=== PATIENT | female | born 1995 | race Caucasian/White ===

== ENCOUNTER 2017-06-03 03:37 | Emergency (ER) | payer OTHER ==
[~2017-06-03] VITALS: Ht 157.5 cm; Wt 62.7 kg
[~2017-06-03 03:37] MED LIST: AUGMENTIN875 MG PO; NOHOMEMEDS
[2017-06-03 04:48] LABS: HEMATOCRIT 42.6 % (36.0-46.0); MCH 29.5 PG (29.0-34.0); MCHC 34.7 G/DL (30.0-36.0); MEAN PLAT.VOLUME 9.5 uM^3 (9.5-12.4); PLATELET COUNT 393 K/uL (156-360); RBC DIS.WIDTH-CV 11.3 % (11.8-14.6); RBC DIS.WIDTH-SD 34.5 % (39-53); RED BLOOD COUNT 5.01 M/uL (3.80-5.20); WHITE BLOOD COUNT 10.6 K/uL (4.1-10.2)
[2017-06-03 04:50] LABS: CHLORIDE 105 mEq/L (99-109); POTASSIUM 3.3 mEq/L (3.7-5.4); SODIUM 141 mEq/L (136-147)
[2017-06-03 04:53] LABS: GLUCOSE 107 mg/dL (70-99)
[2017-06-03 04:54] LABS: ANION GAP 16 MEQ/L (2-14); TOTAL BILIRUBIN 0.4 mg/dL (0.0-1.0)
[2017-06-03 04:56] LABS: ALKALINE PHOSPHATASE 87 IU/L (3-129); GFR ESTIMATE (CALCULATED) > 59 mL/min/
[2017-06-03 04:57] LABS: UREA NITROGEN (BUN) 10 mg/dL (9-23)
[2017-06-03 04:58] LABS: DIRECT BILIRUBIN 0.2 mg/dL (0.0-0.3)
[2017-06-03 05:09] LABS: D-DIMER ELISA < 150.00 ng/mLDDU (<230)
[2017-06-03 05:11] LABS: QUANTITATIVE HCG < 4.0 MIU/ML
[2017-06-03 05:43] LABS: TROP-I INTERPRETATION NEGATIVE; TROPONIN-I < 0.01 ng/mL (0.0-0.30)
[2017-06-03 06:03] VITALS: BP 132/78
== END 2017-06-03 06:04 | disposition home or self-care (01) ==
LOC: EME 03:37
PROVIDERS: Emergency Medicine
DX: R06.02 Shortness of breath (principal); F41.9 Anxiety disorder, unspecified; K21.9 Gastro-esophageal reflux disease without esophagitis; E87.6 Hypokalemia
CPT/HCPCS: 71020; 80048; 80076; 84484; 84702; 85027; 85379; 93005; 99281; 99284; J2060; J2405; J7030

== ENCOUNTER 2017-07-29 22:10 | Outpatient (CLI) | payer OTHER ==
[2017-07-29 22:48] VITALS: BP 117/75
[2017-07-29 22:50] VITALS: BP 117/75
[2017-07-29 23:28] LABS: ADD MIUA? NO; BILIRUBIN NEGATIVE; BLOOD NEGATIVE; COLOR STRAW ((YELLOW)); GLUCOSE (STRIP) NEGATIVE; KETONES 20; LEUKOCYTES NEGATIVE; NITRITE NEGATIVE; PROTEIN (STRIP) NEGATIVE; SPECIFIC GRAVITY 1.006 (1.000-1.030); UCUL ADDED? NO; UROBILINOGEN 0.2 MG/DL (0.2-1.0)
[2017-07-29 23:32] LABS: CHLORIDE 105 mEq/L (99-109); POTASSIUM 3.2 mEq/L (3.7-5.4); SODIUM 135 mEq/L (136-147)
[2017-07-29 23:34] LABS: GLUCOSE 89 mg/dL (70-99)
[2017-07-29 23:35] LABS: ANION GAP 7 MEQ/L (2-14)
[2017-07-29 23:36] LABS: TOTAL BILIRUBIN 0.5 mg/dL (0.0-1.0)
[2017-07-29 23:38] LABS: ALKALINE PHOSPHATASE 47 IU/L (3-129); GFR ESTIMATE (CALCULATED) > 59 mL/min/
[2017-07-29 23:39] LABS: UREA NITROGEN (BUN) 6 mg/dL (9-23)
== END 2017-07-30 01:10 | disposition home or self-care (01) ==
LOC: LDRP-OP 22:10 → 2WEST 22:13
PROVIDERS: Advanced Practice Midwife
DX: O21.9 Vomiting of pregnancy, unspecified (principal); Z3A.10 10 weeks gestation of pregnancy; Z87.891 Personal history of nicotine dependence
CPT/HCPCS: 80053; 81003; G0378; J7120

== ENCOUNTER 2017-08-12 17:23 | Emergency (ER) | payer OTHER ==
[~2017-08-12] VITALS: Ht 154.9 cm; Wt 63.0 kg
[2017-08-12 17:24] VITALS: BP 112/65
[2017-08-12 18:01] LABS: HEMATOCRIT 34.2 % (36.0-46.0); HEMOGLOBIN 12.2 G/DL (11.9-15.5); MCH 30.7 PG (29.0-34.0); MCHC 35.7 G/DL (30.0-36.0); MCV 86.1 FL (83-99); PLATELET COUNT 329 K/uL (156-360); RBC DIS.WIDTH-CV 11.9 % (11.8-14.6); RBC DIS.WIDTH-SD 37.4 % (39-53); RED BLOOD COUNT 3.97 M/uL (3.80-5.20); WHITE BLOOD COUNT 8.4 K/uL (4.1-10.2)
[2017-08-12 18:10] LABS: CHLORIDE 107 mEq/L (99-109)
[2017-08-12 18:11] LABS: POTASSIUM 3.9 mEq/L (3.7-5.4); SODIUM 136 mEq/L (136-147)
[2017-08-12 18:12] LABS: GLUCOSE 89 mg/dL (70-99)
[2017-08-12 18:16] LABS: CREATININE 0.6 mg/dL (0.6-1.3); GFR ESTIMATE (CALCULATED) > 59 mL/min/
[2017-08-12 18:17] LABS: UREA NITROGEN (BUN) 9 mg/dL (9-23)
[2017-08-12 18:46] LABS: QUANTITATIVE HCG 136614.3 MIU/ML
== END 2017-08-12 18:42 | disposition left against medical advice (07) ==
LOC: EME 17:23
DX: R51 Headache (principal); H53.8 Other visual disturbances; Z53.21 Procedure and treatment not carried out due to patient leaving prior to being seen by health care provider
CPT/HCPCS: 80048; 84702; 85027; 99281

== ENCOUNTER 2017-09-27 22:19 | Emergency (ER) | payer OTHER ==
[~2017-09-27] VITALS: Ht 157.5 cm; Wt 66.8 kg
[2017-09-27 23:46] VITALS: BP 126/88
== END 2017-09-27 23:47 | disposition home or self-care (01) ==
LOC: EME 22:19
DX: O26.892 Other specified pregnancy related conditions, second trimester (principal); R10.30 Lower abdominal pain, unspecified; Z3A.17 17 weeks gestation of pregnancy; Y04.2XXA Assault by strike against or bumped into by another person, initial encounter; O99.612 Diseases of the digestive system complicating pregnancy, second trimester; K21.9 Gastro-esophageal reflux disease without esophagitis; O99.282 Endocrine, nutritional and metabolic diseases complicating pregnancy, second trimester; E28.2 Polycystic ovarian syndrome
CPT/HCPCS: 76801; 76805; 99281; 99284

== ENCOUNTER 2018-02-21 08:25 | Outpatient (CLI) | payer OTHER ==
[~2018-02-21] VITALS: Ht 157.5 cm; Wt 77.2 kg
[2018-02-21 08:51] VITALS: BP 116/79
[2018-02-21] MEDS ORDERED: FIORICET 50-301 EAC1 PR (09:11)
[2018-02-21 11:23] LABS: BASOPHIL (%) 0.3 % (0-1); EOSINOPHIL (%) 0.5 % (0-5); EOSINOPHIL COUNT 0.1 K/uL (0-0.3); HEMATOCRIT 34.4 % (36.0-46.0); HEMOGLOBIN 11.5 G/DL (11.9-15.5); IMMATURE GRANULOCYTE (%) 0.8 % (0.0-0.7); LYMPHOCYTE (%) 23.1 % (15-42); LYMPHOCYTE COUNT 2.2 K/uL (1.0-2.8); MCH 28.5 PG (29.0-34.0); MCHC 33.4 G/DL (30.0-36.0); MCV 85.4 FL (83-99); MONOCYTE (%) 6.7 % (3-12); MONOCYTE COUNT 0.6 K/uL (0-0.8); NEUTROPHIL (%) 68.6 % (45-76); NEUTROPHIL COUNT 6.5 K/uL (1.8-6.4); PLATELET COUNT 229 K/uL (156-360); RBC DIS.WIDTH-CV 13.8 % (11.8-14.6); RED BLOOD COUNT 4.03 M/uL (3.80-5.20); WHITE BLOOD COUNT 9.4 K/uL (4.1-10.2)
== END 2018-02-21 14:20 | disposition home or self-care (01) ==
LOC: LDRP-OP → 2WEST 08:26 → LDRP-OP 03-21 01:22
PROVIDERS: Midwife
DX: O46.8X3 Other antepartum hemorrhage, third trimester (principal); Z3A.38 38 weeks gestation of pregnancy
CPT/HCPCS: 59025; 76805; 85025; G0378

== ENCOUNTER 2018-03-07 12:12 | Outpatient (CLI) | payer OTHER ==
[~2018-03-07] VITALS: Ht 157.5 cm; Wt 78.5 kg
[~2018-03-07 12:12] MED LIST changes: +FIORICET 50-301 EAC1 PR
[2018-03-07 12:36] VITALS: BP 109/72
[2018-03-07] MEDS ORDERED: PRENATAL TABLE1 EAC3 PO (12:53)
[2018-03-07] MEDS ORDERED: ZANTAC150 MG PO (12:54)
[2018-03-07 13:57] VITALS: BP 119/72
== END 2018-03-07 14:20 | disposition home or self-care (01) ==
LOC: LDRP-OP 12:12 → 2WEST 12:13 → LDRP-OP 04-04 14:27
DX: O47.1 False labor at or after 37 completed weeks of gestation (principal); Z3A.40 40 weeks gestation of pregnancy
CPT/HCPCS: 59025; 85025; 86780; G0378

== ENCOUNTER 2018-03-10 17:06 | Inpatient (IN) | payer OTHER ==
[~2018-03-10] VITALS: Ht 157.5 cm; Wt 80.9 kg
[~2018-03-10 17:06] MED LIST changes: +PRENATAL TABLE1 EAC3 PO; +ZANTAC150 MG PO
[2018-03-10 17:44] VITALS: BP 107/59
[2018-03-10 18:09] LABS: BASOPHIL (%) 0.3 % (0-1); EOSINOPHIL (%) 0.5 % (0-5); EOSINOPHIL COUNT 0.1 K/uL (0-0.3); HEMATOCRIT 33.7 % (36.0-46.0); HEMOGLOBIN 11.7 G/DL (11.9-15.5); IMMATURE GRANULOCYTE (%) 0.6 % (0.0-0.7); LYMPHOCYTE (%) 23.8 % (15-42); LYMPHOCYTE COUNT 2.3 K/uL (1.0-2.8); MCH 29.1 PG (29.0-34.0); MCHC 34.7 G/DL (30.0-36.0); MCV 83.8 FL (83-99); MONOCYTE (%) 6.8 % (3-12); MONOCYTE COUNT 0.7 K/uL (0-0.8); NEUTROPHIL COUNT 6.6 K/uL (1.8-6.4); PLATELET COUNT 226 K/uL (156-360); RBC DIS.WIDTH-CV 14.1 % (11.8-14.6); RBC DIS.WIDTH-SD 43.4 % (39-53); RED BLOOD COUNT 4.02 M/uL (3.80-5.20); WHITE BLOOD COUNT 9.7 K/uL (4.1-10.2)
[2018-03-10 19:23] LABS: AMPHETAMINE NEGATIVE (500 ng/mL); BARBITURATES PRESUMPTIVE POSITIVE (200 ng/mL); BENZODIAZEPINES NEGATIVE (150 ng/mL); BUPRENORPHINE NEGATIVE (10 ng/mL); COCAINE NEGATIVE (150 ng/mL); METHADONE NEGATIVE (200 ng/mL); METHAMPHETAMINE NEGATIVE (500 ng/mL); OPIATES (MORPHINE) NEGATIVE (100 ng/mL); OXYCODONE NEGATIVE (100 ng/mL); PHENCYCLIDINE NEGATIVE (25 ng/mL); PROPOXYPHENE NEGATIVE (300 ng/mL); THC CANNABINOIDS NEGATIVE (50 ng/mL); TRICYCLIC ANTIDEPRESSANTS NEGATIVE (300 ng/mL)
[2018-03-10 20:01] VITALS: BP 115/59
[2018-03-10 22:03] VITALS: BP 107/64
[2018-03-10 22:46] VITALS: BP 109/65
[2018-03-10 23:57] VITALS: BP 94/53
[2018-03-11] VITALS (31 sets, daily range): BP systolic 88–144; BP diastolic 52–83
[2018-03-12] VITALS (43 sets, daily range): BP systolic 81–128; BP diastolic 46–85
[2018-03-13] VITALS (7 sets, daily range): BP systolic 98–128; BP diastolic 51–73
[2018-03-13 05:44] LABS: BASOPHIL (%) 0.1 % (0-1); EOSINOPHIL (%) 0.3 % (0-5); HEMATOCRIT 29.6 % (36.0-46.0); HEMOGLOBIN 9.9 G/DL (11.9-15.5); IMMATURE GRANULOCYTE (%) 0.6 % (0.0-0.7); LYMPHOCYTE (%) 14.5 % (15-42); MCH 28.4 PG (29.0-34.0); MCHC 33.4 G/DL (30.0-36.0); MCV 84.8 FL (83-99); NEUTROPHIL (%) 77.5 % (45-76); NEUTROPHIL COUNT 10.6 K/uL (1.8-6.4); PLATELET COUNT 178 K/uL (156-360); RBC DIS.WIDTH-CV 14.4 % (11.8-14.6); RBC DIS.WIDTH-SD 44.3 % (39-53); RED BLOOD COUNT 3.49 M/uL (3.80-5.20); WHITE BLOOD COUNT 13.7 K/uL (4.1-10.2)
[2018-03-14 03:00] VITALS: BP 123/68
[2018-03-14 07:17] VITALS: BP 120/77
[2018-03-14 10:53] VITALS: BP 114/74
[2018-03-14] MEDS ORDERED: IBUPROFEN800 MG PO (11:18)
[2018-03-14] MEDS ORDERED: ENDOCET 5-3251 EACH PO (11:18)
[2018-03-14 15:00] VITALS: BP 115/74
[2018-03-14 22:18] VITALS: BP 119/67
[2018-03-15 07:01] VITALS: BP 110/67
== END 2018-03-15 15:30 | disposition home or self-care (01) | DRG 765 ==
LOC: LDRP-OP 17:06 → 2WEST 17:07 → LDRP-OP 04-07 14:28
PROVIDERS: Midwife; Obstetrics & Gynecology
DX: O65.4 Obstructed labor due to fetopelvic disproportion, unspecified (principal); O63.9 Long labor, unspecified; O75.2 Pyrexia during labor, not elsewhere classified; O48.0 Post-term pregnancy; O77.0 Labor and delivery complicated by meconium in amniotic fluid; O12.04 Gestational edema, complicating childbirth; Z3A.41 41 weeks gestation of pregnancy; Z37.0 Single live birth; B96.1 Klebsiella pneumoniae [K. pneumoniae] as the cause of diseases classified elsewhere
CPT/HCPCS: 84999; 85025; 86850; 86900; 86901; 87070; 87075; 87077; 87186; 87205; 88304; 88307; C1755; G0378; J0131; J0290; J0595; J0690; J1170; J1200; J1580; J1885; J2274; J2405; J2590; J2795; J3010; J7050; J7120